=== PATIENT | female | born 1975 | race Caucasian/White ===

== ENCOUNTER 2021-06-22 09:57 | Emergency (ER) | payer SELFPAY ==
[~2021-06-22] VITALS: Ht 177.8 cm; Wt 57.7 kg
[2021-06-22 10:15] VITALS: TEMP 97.6
[2021-06-22 13:37] VITALS: BP 102/53; PULSE 75
== END 2021-06-22 13:37 | disposition home or self-care (01) ==
LOC: COL.ER 09:57
DX: R51.9 Headache, unspecified (principal); R11.0 Nausea; Z86.69 Personal history of other diseases of the nervous system and sense organs
CPT/HCPCS: J0780; J1200; J1885; J7030

== ENCOUNTER → 2021-08-06 | Outpatient (CLI) | payer BC | LOC: ZCOL.LAB 16:51 | DX: J34.89 Other specified disorders of nose and nasal sinuses (principal) ==

== ENCOUNTER 2021-11-30 04:22 | Emergency (ER) | payer BC ==
[~2021-11-30] VITALS: Ht 177.8 cm; Wt 61.4 kg
[2021-11-30 04:29] VITALS: TEMP 98
[2021-11-30 05:05] LABS: BASO # 0.1 K/mm3 (0.0-0.2); BASO % 0.7 % (0.0-2.0); EOS # 0.1 K/mm3 (0.0-0.7); EOS % 1.7 % (0.0-4.0); GRAN # 4.5 K/mm3 (1.4-6.5); GRAN % 64.8 % (42.2-75.2); HEMOGLOBIN 12.7 g/dl (12.5-16.0); LYMPH # 1.7 K/mm3 (1.2-3.4); LYMPH % 24.6 % (20.0-51.0); MEAN CELL VOLUME 85 fl (80.0-100.0); MEAN CORPUSCULAR HEMOGLOBIN 29 pg (27-31); MEAN CORPUSCULAR HGB CONC 33 g/dl (33.0-37.0); MEAN PLATELET VOLUME 9.1 fl (7.4-10.4); MONO # 0.6 K/mm3 (0.1-0.6); MONO % 7.9 % (1.7-9.3); PLATELET COUNT 240 K/mm3 (130-400); RED BLOOD COUNT 4.45 M/mm3 (4.10-5.30); REDCELL DISTRIBUTION WIDTH-CV 13.4 % (11.5-14.5)
[2021-11-30 05:22] LABS: ALBUMIN 3.9 gm/dL (3.5-5.0); BILIRUBIN,TOTAL 0.3 mg/dL (0.2-1.2); CREATININE, serum 0.8 mg/dL (0.57-1.11); POTASSIUM 4.2 mmol/L (3.5-4.5); TOTAL PROTEIN 7.9 gm/dL (6.2-8.1)
[2021-11-30 05:54] LABS: COLLECTION METHOD CLEAN CATCH
[2021-11-30 06:02] LABS: MUCOUS Present (NOT PRESENT); PH 5 (5-8); SQUAMOUS EPITHELIAL 0-2 /hpf (0-10); URINE APPEARANCE Clear (CLEAR/HAZY); URINE BACTERIA None Seen /hpf (NONE SEEN); URINE BILIRUBIN Negative (NEGATIVE); URINE BLOOD 2+ (NEGATIVE); URINE COLOR Yellow (YELLOW); URINE GLUCOSE Negative (NEGATIVE); URINE KETONE Negative (NEGATIVE); URINE LEUKOCYTE ESTERASE Negative (NEGATIVE); URINE NITRATE Negative (NEGATIVE); URINE PROTEIN(semi-quant) Negative (NEGATIVE); URINE RBC 20-50 /hpf (0-2); URINE UROBILINOGEN Negative (NEGATIVE)
[2021-11-30] MEDS ORDERED: ZOFRAN ODT4 MG PO (07:09)
[2021-11-30] MEDS ORDERED: TORADOL 10MG TA10 MG PO (07:09)
[2021-11-30 07:25] VITALS: BP 112/70; PULSE 82
== END 2021-11-30 07:30 | disposition home or self-care (01) ==
LOC: COL.ER 04:22
PROVIDERS: Emergency Medicine
DX: N13.2 Hydronephrosis with renal and ureteral calculous obstruction (principal); Z32.02 Encounter for pregnancy test, result negative
CPT/HCPCS: J1885; J2270; J2405; J7030; Q9967

== ENCOUNTER 2023-02-12 08:40 | Day surgery (SDC) | payer BC ==
[~2023-02-12] VITALS: Ht 177.8 cm; Wt 62.3 kg
[~2023-02-12 08:40] MED LIST: TORADOL 10MG TA10 MG PO; ZOFRAN ODT4 MG PO
[2023-02-12 09:25] VITALS: BP 135/56; PULSE 86; TEMP 97.9
--- NOTE | 2023-02-12 09:28 | NUR ---
PATIENT AMBULATORY TO BAY 3 AND ORIENTED TO ROOM. REPORTS GOOD RESULTS FROM THE PREP BUT IS C/O NAUSEA AND FEELING WEAK. IVF STARTED AFTER GETTING CONSENTS SIGNED AND RUNNING AT 125CC/HR. ZOFRAN 4MG IV GIVEN FOR C/O NAUSEA. CALL LIGHT IN REACH. STATES THAT SHE FEELS LIKE SHE IS GETTING A MIGRAINE H/A. LIGHTS DIMMED IN THE ROOM. COVERED WITH WARM BLANKETS AND IS RESTING IN RECLINER.
[2023-02-12] MEDS ORDERED: ASTELIN NASAL S34 ML NS (09:31)
[2023-02-12] MEDS ORDERED: MAXALT MLT10 MG/TAB PO (09:31)
[2023-02-12] MEDS ORDERED: NEURONTIN100 MG/CAP PO (09:32)
[2023-02-12] MEDS ORDERED: BUSPAR DIVIDOSE15 MG PO (09:32)
[2023-02-12] MEDS ORDERED: ALLEGRA 180MG180 MG PO (09:33)
[2023-02-12 11:30] VITALS: BP 106/62; PULSE 85; TEMP 97
[2023-02-12 11:45] VITALS: BP 106/64; PULSE 84
--- NOTE | 2023-02-12 12:04 | NUR ---
1130-PT ARRIVED TO BAY 3 VIA CART FROM ENDO SUITE. PT AMBULATED WITH ASSISTANCE TO RECLINER, WARM BLANKETS PROVIDED. VITAL SIGNS TAKEN, VSS. REPORT OBTAINED FROM RISHI FIGUEROA. PT DENIES ABDOMINAL PAIN OR NAUSEA, REPORTS MIGRAINE SYMPTOMS IMPROVED SINCE ADMISSION. PO INTAKE OFFERED. 1145-PT TOLERATING PO INTAKE WELL. VSS 1150-DISCHARGE INSTRUCTIONS REVIEWED WITH PT, QUESTIONS ANSWERED. PT CHANGED INDEPENDENTLY AND AMBULATED TO BATHROOM. IV CATHETER DISCONTINUED, TIP INTACT. PRESSURE BANDAGE APPLIED. 1200-PT DISCHARGED HOME TO [facility] VIA WHEELCHAIR, ACCOMPANIED BY SPOUSE. ALL BELONGINGS AND DC INSTRUCTIONS SENT WITH PT.
[2023-02-12 12:45] VITALS: BP 104/48; PULSE 85
== END 2023-02-12 12:00 | disposition home or self-care (01) ==
LOC: SDCO 08:40
DX: Z12.11 Encounter for screening for malignant neoplasm of colon (principal); K63.5 Polyp of colon
CPT/HCPCS: J2405; J2704; J7120